=== PATIENT | female | born 1970 | race African-American/Black ===

== ENCOUNTER 2019-10-14 10:50 | Emergency (ER) | payer OTHER ==
[~2019-10-14] VITALS: Ht 157.5 cm; Wt 83.9 kg
[2019-10-14] MEDS ORDERED: LOTREL 10-20 M1 EACH (11:15)
[2019-10-14] MEDS ORDERED: ZITHROMAX500 MG PO (14:06)
[2019-10-14] MEDS ORDERED: TUSNEL LIQUID178 ML PO (14:06)
[2019-10-14] MEDS ORDERED: XOFLUZA40 MG PO (14:06)
[2019-10-14] MEDS ORDERED: DOLOGEN CAPLET1 EACH PO (14:06)
== END 2019-10-14 14:13 | disposition home or self-care (01) ==
LOC: ER 10:50
DX: B34.9 Viral infection, unspecified (principal)